=== PATIENT | male | born 1995 | race Caucasian/White ===

== ENCOUNTER 2019-03-09 12:32 | Emergency (ER) | payer SELFPAY ==
[~2019-03-09] VITALS: Ht 182.9 cm; Wt 68.0 kg
[2019-03-09 12:36] VITALS: BP 150/100
[2019-03-09] MEDS ORDERED: LEVE250T2 PO (12:40)
--- NOTE | 2019-03-09 12:44 | NUR ---
[facility]RI[facility] ([phone]) ETA 20MIN. PATIENT AWARE.
== END 2019-03-09 13:10 | disposition home or self-care (01) ==
LOC: ER 12:35
DX: R56.9 Unspecified convulsions (principal); Z79.899 Other long term (current) drug therapy